=== PATIENT | female | born 1985 | race Caucasian/White ===

== ENCOUNTER 2017-07-02 02:21 | Inpatient (IN) | payer BC ==
[~2017-07-02] VITALS: Ht 165.1 cm; Wt 66.8 kg
[2017-07-02] MEDS ORDERED: OXYTOCIN 30U/ 0.9% NaCL 500ML 500 ML IV PRN (02:46)
[2017-07-02] MEDS: D5%-LACTATED RINGERS 1,000 ML IV SCH ×4 (02:46→20:56)
[2017-07-02] MEDS ORDERED: OXYTOCIN 30U/ 0.9% NaCL 500ML 500 ML IV ONE (02:46)
[2017-07-02] MEDS ORDERED: NEWBORN KIT ONE (02:48)
[2017-07-02] MEDS ORDERED: FENTANYL PF 100 MCG/2ML IVPush PRN (03:00)
[2017-07-02] MEDS ORDERED: ONDANSETRON 2MG/ML, 2ML IVPush PRN (03:00)
[2017-07-02] MEDS ORDERED: ALUMINUM/MAG/SIMETHICONE 30 ML UDC PO PRN (03:00)
[2017-07-02] MEDS ORDERED: FENTANYL PF 100 MCG/2ML IV PRN (03:00)
[2017-07-02] MEDS ORDERED: CALCIUM CARBONATE 500 MG TAB.CHEW PO PRN (03:00)
[2017-07-02 03:05] LABS: HEMATOCRIT 32.4 % (34.6-47.8); HEMOGLOBIN 10.9 g/dL (11.7-16.4); WHITE BLOOD COUNT 10.4 x10^3/uL (3.4-10)
[2017-07-02 03:22] VITALS: BP 116/73
[2017-07-02] MEDS ORDERED: PLEASE ENTER ALLERGIES MC SCH ×2 (03:30)
[2017-07-02] MEDS ORDERED: PLEASE ENTER HEIGHT AND WEIGHT MC SCH (03:30)
[2017-07-02] MEDS ORDERED: OXYTOCIN 30U/ 0.9% NaCL 500ML 500 ML ONE ×2 (04:25→17:19)
[2017-07-02] MEDS ORDERED: LIDOCAINE 1%, 20ML ONE (04:25)
[2017-07-02] MEDS ORDERED: MISOPROSTOL 200 MCG TABLET ONE (04:25)
[2017-07-02] MEDS ORDERED: VALA500T4 PO (04:46)
[2017-07-02] MEDS ORDERED: PREN1TAB60 PO (04:46)
[2017-07-02] MEDS ORDERED: ONDANSETRON 2MG/ML, 2ML ONE (09:37)
[2017-07-02] MEDS: LACTATED RINGERS 1,000 ML IV SCH ×5 (11:00→23:25)
[2017-07-02] MEDS ORDERED: BUPIVACAINE 0.25% ONE (11:42)
[2017-07-02] MEDS ORDERED: FENTANYL PF 100 MCG/2ML ONE (11:42)
[2017-07-02] MEDS ORDERED: FENTANYL/BUPIV./NS/PF 250 ML EPIDCONT ONE (11:42)
[2017-07-02] MEDS ORDERED: FENTANYL/BUPIV./NS/PF 250 ML EPIDCONT SCH (17:27)
[2017-07-02] MEDS ORDERED: LACTATED RINGERS 1,000 ML IVBOLUS PRN (17:30)
[2017-07-02] MEDS ORDERED: ACETAMINOPHEN 325 MG TABLET ONE (19:41)
[2017-07-02] MEDS ORDERED: AMPICILLIN 2 GM IVPB ONE (20:00)
[2017-07-02] MEDS ORDERED: ACETAMINOPHEN 325 MG TABLET PO PRN (20:00)
[2017-07-02] MEDS ORDERED: AMPICILLIN 2 GM in SODIUM CHLORIDE 0.9% 50 ML IV ONE (20:30)
[2017-07-02] MEDS: AMPICILLIN 1 GM in SODIUM CHLORIDE 0.9% 50 ML IV SCH (23:25)
[2017-07-03] MEDS ORDERED: FENTANYL/BUPIV./NS/PF 250 ML EPIDCONT SCH (00:44)
[2017-07-03] MEDS: LACTATED RINGERS 1,000 ML IV SCH ×5 (00:44→10:46)
[2017-07-03] MEDS ORDERED: LACTATED RINGERS 1,000 ML IVBOLUS PRN (01:00)
[2017-07-03] MEDS: AMPICILLIN 1 GM in SODIUM CHLORIDE 0.9% 50 ML IV SCH ×2 (04:00→08:00)
[2017-07-03] MEDS: OXYTOCIN 30U/ 0.9% NaCL 500ML 500 ML IV SCH ×2 (05:18→15:18)
[2017-07-03] MEDS ORDERED: MISOPROSTOL 200 MCG TABLET PR PRN (05:30)
[2017-07-03] MEDS ORDERED: ACETAMINOPHEN 325 MG TABLET PO PRN ×2 (05:30)
[2017-07-03] MEDS ORDERED: DOCUSATE 100 MG CAPSULE PO PRN (05:30)
[2017-07-03] MEDS ORDERED: HYDROcodone/APAP 5/325 TABLET PO PRN (05:30)
[2017-07-03] MEDS ORDERED: IBUPROFEN 600 MG TABLET ONE (06:15)
[2017-07-03] MEDS: IBUPROFEN 600 MG TABLET PO PRN ×3 (06:17→23:00)
[2017-07-03 08:10] VITALS: BP 103/63
[2017-07-03] MEDS: PRENATAL VIT/IRON/FA 1 EACH TABLET PO SCH (09:00)
[2017-07-03] MEDS: D5%-LACTATED RINGERS 1,000 ML IV SCH (10:46)
[2017-07-03 12:25] VITALS: BP 96/57
[2017-07-03 13:35] LABS: HEMATOCRIT 27.2 % (34.6-47.8); HEMOGLOBIN 9.3 g/dL (11.7-16.4); WHITE BLOOD COUNT 19.1 x10^3/uL (3.4-10)
[2017-07-03 16:15] VITALS: BP 105/62
[2017-07-03] MEDS: HYDROcodone/APAP 5/325 TABLET PO PRN (17:32)
[2017-07-03 21:30] VITALS: BP 108/69
[2017-07-03] MEDS ORDERED: RHOGAM FROM BLOOD BANK 1 NOTE EA IM/IV ONE (22:00)
[2017-07-04] VITALS: BP 108/67
[2017-07-04] MEDS: OXYTOCIN 30U/ 0.9% NaCL 500ML 500 ML IV SCH ×2 (01:18→11:18)
[2017-07-04] MEDS ORDERED: ACETAMINOPHEN 325 MG TABLET PO PRN ×3 (02:00)
[2017-07-04 04:00] VITALS: BP 105/70
[2017-07-04] MEDS: HYDROcodone/APAP 5/325 TABLET PO PRN ×2 (05:38→10:09)
[2017-07-04] MEDS: PRENATAL VIT/IRON/FA 1 EACH TABLET PO SCH (10:09)
[2017-07-04] MEDS: IBUPROFEN 600 MG TABLET PO PRN (10:09)
[2017-07-04 10:10] VITALS: BP 105/65
[2017-07-04] MEDS ORDERED: HYDR-3240 PO (16:47)
[2017-07-04] MEDS ORDERED: IBUP-1222 PO (16:47)
[2017-07-04] MEDS ORDERED: FERR325T23 PO (16:48)
== END 2017-07-04 18:00 | disposition home or self-care (01) | DRG 775 ==
LOC: LDOP 02:21 → LDIP 02:43 → 2NW 07-03 07:52
PROVIDERS: ADMIT Obstetrics & Gynecology; ATTEND Obstetrics & Gynecology
PROC: 10E0XZZ Delivery of Products of Conception, External Approach (ICD-10-PCS; principal; 2017-07-03)
PROC: 0W8NXZZ Division of Female Perineum, External Approach (ICD-10-PCS; 2017-07-03)
PROC: 00HU33Z Insertion of Infusion Device into Spinal Canal, Percutaneous Approach (ICD-10-PCS; 2017-07-03)
PROC: 3E0R3CZ (ICD-10-PCS; 2017-07-03)
PROC: 30233N1 Transfusion of Nonautologous Red Blood Cells into Peripheral Vein, Percutaneous Approach (ICD-10-PCS; 2017-07-03)
DX: O42.913 Preterm premature rupture of membranes, unspecified as to length of time between rupture and onset of labor, third trimester (principal); O99.354 Diseases of the nervous system complicating childbirth; Z3A.36 36 weeks gestation of pregnancy; Z37.0 Single live birth; O63.1 Prolonged second stage (of labor); O76 Abnormality in fetal heart rate and rhythm complicating labor and delivery; O75.81 Maternal exhaustion complicating labor and delivery; O69.81X0 Labor and delivery complicated by cord around neck, without compression, not applicable or unspecified; G43.909 Migraine, unspecified, not intractable, without status migrainosus; Z88.8 Allergy status to other drugs, medicaments and biological substances
CPT/HCPCS: 36415; 76815; 85025; 85461; 86850; 86900; 87070; 87075; 87205; 88307; J0290; J2405; J2790; J2590; J7120; J7121

== ENCOUNTER 2021-02-05 00:51 | Inpatient (IN) | payer BC ==
[2021-02-05] VITALS (7 sets, daily range): BP systolic 105–143; BP diastolic 66–90
[~2021-02-05] VITALS: Ht 167.6 cm; Wt 69.5 kg
[~2021-02-05 00:51] MED LIST: FERR325T23 PO; HYDR-2214 PO; IBUP-1222 PO; PREN1TAB60 PO; VALA500T4 PO
[2021-02-05] MEDS ORDERED: FENTANYL PF 100 MCG/2ML IV PRN ×2 (01:30→02:00)
[2021-02-05] MEDS ORDERED: OXYTOCIN 30U/ 0.9% NaCL 500ML 500 ML IV ONE ×2 (01:30→02:00)
[2021-02-05] MEDS ORDERED: FENTANYL PF 100 MCG/2ML IVPush PRN (01:30)
[2021-02-05] MEDS ORDERED: ONDANSETRON 2MG/ML, 2ML IVPush PRN ×2 (01:30→02:00)
[2021-02-05] MEDS ORDERED: FENTANYL/BUPIV./NS/PF 250 ML EPIDCONT SCH (01:30)
[2021-02-05] MEDS ORDERED: OXYTOCIN 30U/ 0.9% NaCL 500ML 500 ML IV PRN ×2 (01:30)
[2021-02-05] MEDS ORDERED: TERBUTALINE 1 MG/ML, 1ML IVPush PRN ×2 (01:30→02:00)
[2021-02-05] MEDS ORDERED: LACTATED RINGERS 1,000 ML IV SCH ×2 (01:30→02:00)
[2021-02-05] MEDS ORDERED: TERBUTALINE 1 MG/ML, 1ML SQ PRN ×3 (01:30→02:00)
[2021-02-05] MEDS ORDERED: EPHEDRINE 50 MG/ML, 1ML IVPush PRN (01:30)
[2021-02-05] MEDS ORDERED: FENTANYL PF 100 MCG/2ML ONE (01:50)
[2021-02-05] MEDS: FENTANYL PF 100 MCG/2ML IVPush PRN (01:53)
[2021-02-05] MEDS ORDERED: NEWBORN KIT ONE (01:56)
[2021-02-05 01:57] LABS: BASOPHILS % (AUTO) 1 % (0-1); EOSINOPHILS % (AUTO) 0 % (1-7); LYMPHOCYTES % (AUTO) 31 % (22-44); MEAN CORPUSCULAR HEMOGLOBIN 30.2 pg (27.0-34.8); MEAN CORPUSCULAR HGB CONC 33.5 g/dL (32.4-35.8); MEAN PLATELET VOLUME 8.2 fL (7.4-10.4); MONOCYTES % (AUTO) 5 % (2-9); NEUTROPHILS % (AUTO) 64 % (42-75); PLATELET COUNT 240 x10^3/uL (130-400); RED BLOOD COUNT 4.06 x10^6/uL (3.82-5.3)
[2021-02-05] MEDS ORDERED: MISOPROSTOL 200 MCG TABLET ONE (01:57)
[2021-02-05] MEDS ORDERED: OXYTOCIN 30U/ 0.9% NaCL 500ML 500 ML ONE (01:57)
[2021-02-05] MEDS ORDERED: LIDOCAINE 1%, 20ML ONE (01:57)
[2021-02-05] MEDS ORDERED: D5%-LACTATED RINGERS 1,000 ML IV SCH (02:00)
[2021-02-05] MEDS ORDERED: CALCIUM CARBONATE 500 MG TAB.CHEW PO PRN (02:00)
[2021-02-05] MEDS ORDERED: SODIUM CITRATE/CITRIC ACID 30 ML UDC PO PRN (02:00)
[2021-02-05] MEDS ORDERED: PLEASE ENTER HEIGHT AND WEIGHT MC SCH ×2 (02:00→02:30)
[2021-02-05] MEDS ORDERED: METOCLOPRAMIDE 5 MG/ML, 2ML IVPush PRN (02:00)
[2021-02-05 02:13] LABS: MD NO
[2021-02-05] MEDS ORDERED: ACETAMINOPHEN 325 MG TABLET PO PRN (03:30)
[2021-02-05] MEDS ORDERED: MISOPROSTOL 200 MCG TABLET PR PRN (03:30)
[2021-02-05] MEDS ORDERED: DOCUSATE 100 MG CAPSULE PO PRN (03:30)
[2021-02-05] MEDS ORDERED: RHOGAM FROM BLOOD BANK 1 NOTE EA IM/IV ONE (03:30)
[2021-02-05] MEDS ORDERED: HYDROcodone/APAP 5/325 TABLET PO PRN ×2 (03:30)
[2021-02-05] MEDS ORDERED: MEASLES,MUMPS&RUBELLA VACC/PF 0.5 ML SQ-VACC PRN (03:30)
[2021-02-05] MEDS ORDERED: MAGNESIUM HYDROXIDE 8%, 30ML UDC PO PRN (03:30)
[2021-02-05] MEDS: OXYTOCIN 30U/ 0.9% NaCL 500ML 500 ML IV SCH ×3 (03:30→23:30)
[2021-02-05] MEDS ORDERED: MISOPROSTOL 25 MCG TABLET ONE (04:12)
[2021-02-05] MEDS: PRENATAL VIT/IRON/FA 1 EACH TABLET PO SCH (07:41)
[2021-02-05] MEDS: IBUPROFEN 600 MG TABLET PO PRN ×2 (11:51→19:30)
[2021-02-05] MEDS: ACETAMINOPHEN 325 MG TABLET PO PRN (11:51)
[2021-02-05 12:04] LABS: BASOPHILS % (AUTO) 1 % (0-1); EOSINOPHILS % (AUTO) 0 % (1-7); LYMPHOCYTES % (AUTO) 9 % (22-44); MEAN CORPUSCULAR HEMOGLOBIN 29.9 pg (27.0-34.8); MEAN CORPUSCULAR HGB CONC 32.9 g/dL (32.4-35.8); MEAN PLATELET VOLUME 8.1 fL (7.4-10.4); MONOCYTES % (AUTO) 5 % (2-9); NEUTROPHILS % (AUTO) 86 % (42-75); PLATELET COUNT 219 x10^3/uL (130-400); RED BLOOD COUNT 3.68 x10^6/uL (3.82-5.3)
[2021-02-05 12:24] LABS: MD SCAN
[2021-02-06 04:00] VITALS: BP 106/60
[2021-02-06] MEDS: ACETAMINOPHEN 325 MG TABLET PO PRN (07:27)
[2021-02-06] MEDS: PRENATAL VIT/IRON/FA 1 EACH TABLET PO SCH (07:27)
[2021-02-06] MEDS: IBUPROFEN 600 MG TABLET PO PRN (07:27)
[2021-02-06 07:40] VITALS: BP 109/74
[2021-02-06] MEDS ORDERED: SENN-52 PO (09:59)
== END 2021-02-06 12:00 | disposition home or self-care (01) | DRG 807 ==
LOC: LDOP 00:51 → LDIP 01:23 → 2NW 04:42
PROVIDERS: ADMIT Obstetrics & Gynecology; ATTEND Obstetrics & Gynecology
PROC: 10E0XZZ Delivery of Products of Conception, External Approach (ICD-10-PCS; principal; 2021-02-05)
PROC: 0KQM0ZZ Repair Perineum Muscle, Open Approach (ICD-10-PCS; 2021-02-05)
DX: O69.81X0 Labor and delivery complicated by cord around neck, without compression, not applicable or unspecified (principal); Z37.0 Single live birth; Z20.822 Contact with and (suspected) exposure to COVID-19; Z3A.37 37 weeks gestation of pregnancy; O70.1 Second degree perineal laceration during delivery
CPT/HCPCS: 36415; 85025; 85460; 85461; 86592; 86850; 86900; 87635; G0378; J2790; J3010; J2590; J7120